=== PATIENT | male | born 1965 | race Caucasian/White ===

== ENCOUNTER 2024-06-22 11:30 | Outpatient (RCR) | payer OTHER, SELFPAY ==
[2024-06-03 10:00] VITALS: BP 125/68; PULSE 83; RESP 16; TEMP 36.3; BMI 41.3
--- NOTE | 2024-06-03 12:15 | PCM.WC.HP ---
History of Present Illness Date of Service: 06/03/24 Chief Complaint: Foot ulcer History of Wound: Mr. Carlos is a 59-year-old who was referred to the wound center by his PCP due to foot ulcers. Bilateral foot concerns. Left foot said to have been present for a few months. He states that he has been cleaning it daily but not done much else to it. History of poorly controlled diabetes, does not follow with podiatry. Last A1c in August per patient was over 13. Recently had another visit with his PCP and there have been some changes to his diabetes management. Does not have much feeling in his foot either. He states that he feels well otherwise. No chills, fever or change in bowel habit. [facility] Medical History (Updated 06/03/24 @ 18:[address] Timothy Valenzuela MD) Diabetes mellitus with foot ulcer Atrial fibrillation Type 2 diabetes mellitus Callus of foot Chronic foot ulcer with fat layer exposed Home Medications ?Medication ?Instructions ?Recorded ?Last Taken ?Type acetaminophen 500 mg tablet 1,000 mg PO Q12H PRN PRN fever or 06/03/24 Unknown History (Acetaminophen Extra Strength) pain apixaban 5 mg tablet (Eliquis) 5 mg PO BID 06/03/24 Unknown History atorvastatin 40 mg tablet 40 mg PO DAILY 06/03/24 Unknown History dapagliflozin propanediol 10 mg 10 mg PO DAILY 06/03/24 Unknown History tablet (Farxiga) furosemide 40 mg tablet 40 mg PO DAILY 06/03/24 Unknown History gabapentin 300 mg capsule 300 mg PO TID 06/03/24 Unknown History lisinopril 10 mg tablet 10 mg PO DAILY 06/03/24 Unknown History potassium chloride 10 mEq 10 meq PO DAILY 06/03/24 Unknown History tablet,extended release tirzepatide 2.5 mg/0.5 mL 2.5 mg subcut QWEEK 06/03/24 Unknown History subcutaneous pen injector (Mounjaro) Allergy/AdvReac Type Severity Reaction Status Date / Time No Known Allergies Allergy Verified 06/03/24 10:28 Social History Smoking Status: Former smoker ROS Constitutional Constitutional: Denies change in weight, fatigue, fever(s), headache(s), increased appetite, lethargy or poor appetite Eyes Eyes: Denies blindness, blurry vision, change in eye color, change in vision, discharge from eye(s), discongugate gaze, erythema or excessive blinking ENT HEENT: Denies dysphagia, epistaxis, facial pain, foreign body in nose, halitosis, headache(s), hearing loss or hoarseness Cardiovascular Cardiovascular: Reports irregular heart rhythm; Denies bluish discoloration of hand/feet, cold extremities, cyanosis, diaphoresis, dizziness or orthostatic symptoms Respiratory/Chest Respiratory/Chest: Denies excessive phlegm production, hemoptysis, hoarseness, inability to speak, mouth breathing or nail bed cyanosis Gastrointestinal Gastrointestinal: Denies belching, bloating, chewing difficulty, cramping, dry heaves or excessive flatus Genitourinary Genitourinary: Denies abdominal discomfort, difficulty urinating, flank pain, hematuria or itching Musculoskeletal Musculoskeletal: Denies atrophy, muscle cramps, muscle weakness, numbness, tingling or tremors Integumentary Integumentary: Denies bleeding lesions, changing lesions, furuncle, jaundice or pruritus Neurologic Neurologic: Denies behavior changes, confusion, convulsions, frequent falls, lack of coordination or memory loss Psychiatric Psychiatric: Denies auditory hallucinations, cognitive impairment, difficulty concentrating, hallucinations, hopelessness or memory loss Endocrine Endocrinology: Denies change in body appearance, cold intolerance, deepening of the voice, excessive sweating, heat intolerance or increase in ring/shoe/hat size Hematologic/Lymphatic Hematologic/Lymphatic: Denies easy bruising Allergic/Immunologic Allergic/Immunologic: Denies itchy eyes, lip swelling, throat swelling, tongue swelling, hives or wheezing Vital Signs Vital Signs Vital Signs: 06/03/24 10:00 Temperature 97.4 F L Temperature Source Temporal Pulse Rate 83 Respiratory Rate 16 Blood Pressure 125/68 H Blood Pressure Mean 87 Blood Pressure Source Monitor Blood Pressure Position Sitting Blood Pressure Location Left Arm Oxygen Delivery Method Room Air Weight Weight: 305 lb Body Mass Index (BMI) 41.3 Physical Exam Const alert, oriented x3 and no apparent distress HEENT normocephalic and head/scalp atraumatic Eyes EOMs intact bilaterally Neck full ROM and supple General: normal visual inspection Resp normal respiratory effort and normal air movement Effort and Inspection: able to speak in complete sentences Cardio regular rate, S1 normal heart sound and S2 normal heart sound Rhythm: abnormal rhythm GI soft to palpation and non-tender Extremity General Extremity: edema Skin Wounds: wounds noted size Size: See clinical note., bed with slough and crusted, margins indurated and no odor Neuro oriented x3, CN's II-XII intact bilaterally and moves all extremities Psych mental status grossly normal, thought process normal, cooperative and affect normal Debridement Note Debridement Note Wound debrided: Left lateral hallux Type of Debridement: Excisional debridement Anesthesia Used: 5% Lidocaine Gel Depth: Down to and including healthy tissue and in the subcutaneous layer Percentage of wound debrided: 100 Instrument Used: 5mm curette, #15 blade and Forceps Tissue Removed: Callus, slough and devitalized tissue Severity: Fat Layer Exposed Amount of bleeding with debridement: Mild Bleeding Controlled with: Pressure Patient tolerated procedure: Patient tolerated procedure well Post-Debridement Measurements and Additional Note: Post-Debridement Measurements/Treatment - Nurse 1 - General Ulcer Assessment Start: 06/03/24 10:00 Freq: Status: Active Protocol: CAM.LOWEXT Activity Type Activity Date Activity User E-sign Co-sign Detail Recorded Client Recorded Date Recorded By Document 06/03/24 10:00 [facility] [id number] 06/03/24 10:25 [facility] 06/03/24 10:00 - Today's Visit Information Type of service Initial Visit Arrival Mode Ambulatory Transfer Assistance None Accompanied by friend Patient Identification Verified (Name & Yes ) Patient Requires Transmission-Based No Precautions Height and Weight Height 6 ft Weight 305 lb Weight in Pounds 305.0 lbs Weight Measurement Method Stated by Patient Body Mass Index (BMI) 41.3 BMI Classification Obese BSA - Ting 2.55 Vital Signs Temperature (97.8 F-99.1 F) 97.4 F L Temperature Source Temporal Pulse Rate (60-100) 83 Pulse Location Monitor Respiratory Rate (12-18) 16 Respiratory rate source Observation Oxygen Delivery Method Room Air Blood Pressure (90/60-120/80) 125/68 H Blood Pressure Mean 87 Source Monitor Position Sitting Blood Pressure Location Left Arm History Since Last Visit- (Skip if this is Patient's initial visit) Left Footwear Regular Shoe Right Footwear Regular Shoe Pain Scale: 0-10 Numeric Is Patient Pain Free? Yes Lower Extremity Assessment/ Foot Assessment/ Toe Nail Assessment Right -Posterior Tibial Doppler Multiphasic -Dorsalis Pedis Doppler Multiphasic -Hair Growth on Legs No -Temperature of Extremity Warm -Thick Yes -Discolored Yes -Deformed No -Improper Length & Hygeine Yes Left -Posterior Tibial Doppler Monophasic -Dorsalis Pedis Doppler Monophasic -Extremity Color Hyperpigmented -Hair Growth on Legs No -Hair Growth on Toes No -Temperature of Extremity Warm -Other Deformity No -Prior Foot Ulcer No -Charcot Joint No -Prior Amputation No -Thick Yes -Discolored Yes -Improper Length & Hygeine Yes Neuropathy Assessment Feet - Top Side and Bottom <Entered> (a) Communication Assessment Preferred language [place] Nurse Practitioner Hospitalist Required No Able to Read Yes Able to Write Yes Communication Tools None Right Hearing Abillity Normal Left Hearing Abillity Normal Visual Assistive Devices None Teaching Assessment Preferences Verbal,Written, Audio/Visual, Demonstration Barriers to Learning None Readiness To Learn Excellent Willingness to Engage in Self Management High Activies Readiness to Engage in Self Management High Activities Anxiety Level Calm Cooperation Cooperative Perception Coherent Interest in Health Problem Asks Questions Education Importance Acknowledges Need Does Patient Smoke tobacco or other No substances Smoking Status Former smoker Is Patient Diabetic Yes Functional Assessment Recent Decline in Ability to Perform Denies Any Declines Culture/Tenriism/Movement Therapist Cultural/Tenriism Needs that may affect No Treatment Plan Teaching: Wound Center *Welcome to the Wound Center -Person Taught Patient -Teaching Method Discussion -Response to teaching Verbalize Understanding (a) 1 - - 2 - - 3 - + 4 - + 5 - - 6 - + 7 - + 8 - + 9 - + 10 - + WC - Nurse 1 - General Ulcer Measurement Start: 06/03/24 10:00 Freq: Status: Active Protocol: Activity Type Activity Date Activity User E-sign Co-sign Detail Recorded Client Recorded Date Recorded By Document 06/03/24 10:00 [facility] [id number] 06/03/24 10:25 [facility] 06/03/24 10:00 Wound Center Nurse 1 #3- R HEEL FISSURE -Combined with other wound No -Current Size (cm) - Length 0.1 -Current Size (cm) - Width 0.1 -Current Size (cm) - Depth 0.1 -Total Square Cm 0.01 -Date of Last Picture (Recall this 06/03/24 field) -Photo Taken Yes -Tunneling No -Undermining/Tunneling No -Circular Undermining No -Exudate Amt Medium -Exudate Type Serosanguineous -Wound Margin Distinct, Outline Attached -Texture (Marlin-wound Skin Appearance) Assessed,Callus ,Scarring -Moisture (Marlin-wound Skin Appearance) Assessed,Dry/ Scaly -Color (Marlin-wound Skin Appearance) Assessed -Temperature (Marlin-wound Skin No Abnormality Appearance) (Pt Warm) -Tenderness on Palpation (Marlin-wound No Skin Appearance) -Ulcer Cleansing Soap and Water -Foul Odor after Cleansing No -Anesthetic Used 5% Lidocaine Gel #2- FISSURE @ PLANTAR BASE OF R GR TOE -Combined with other wound No -Current Size (cm) - Length 0.1 -Current Size (cm) - Width 0.1 -Current Size (cm) - Depth 0.1 -Total Square Cm 0.01 -Date of Last Picture (Recall this 06/03/24 field) -Photo Taken Yes -Tunneling No -Undermining/Tunneling No -Circular Undermining No -Exudate Amt Medium -Exudate Type Serosanguineous -Wound Margin Distinct, Outline Attached -Granulation Amt Medium (34-66%) -Granulation Quality Red -Slough/Fibrin Yes -Necrosis Amt Small (1-33%) -Necrotic Tissue Type Adherent Slough -Texture (Marlin-wound Skin Appearance) Assessed,Callus ,Scarring -Moisture (Marlin-wound Skin Appearance) Assessed,Dry/ Scaly -Color (Marlin-wound Skin Appearance) Assessed -Temperature (Marlin-wound Skin No Abnormality Appearance) (Pt Warm) -Tenderness on Palpation (Marlin-wound No Skin Appearance) -Ulcer Cleansing Soap and Water -Foul Odor after Cleansing No -Anesthetic Used 5% Lidocaine Gel #1- L BUNION CALLUS -Combined with other wound No -Current Size (cm) - Length 0.1 -Current Size (cm) - Width 0.1 -Current Size (cm) - Depth 0.1 -Total Square Cm 0.01 -Date of Last Picture (Recall this 06/03/24 field) -Photo Taken Yes -Tunneling No -Undermining/Tunneling No -Circular Undermining No -Exudate Amt Medium -Exudate Type Serosanguineous -Texture (Marlin-wound Skin Appearance) Assessed,Callus -Moisture (Marlin-wound Skin Appearance) Assessed,Dry/ Scaly -Color (Marlin-wound Skin Appearance) Assessed -Temperature (Marlin-wound Skin No Abnormality Appearance) (Pt Warm) -Tenderness on Palpation (Marlin-wound No Skin Appearance) -Ulcer Cleansing Soap and Water -Foul Odor after Cleansing No -Anesthetic Used 5% Lidocaine Gel Right Calf (cm) 42.3 Right Ankle (cm) 25.6 Left Calf (cm) 39.8 Left Ankle (cm) 24 WC - Nurse 2 - General Ulcer CM Notes Start: 06/03/24 10:00 Freq: Status: Active Protocol: Activity Type Activity Date Activity User E-sign Co-sign Detail Recorded Client Recorded Date Recorded By Document 06/03/24 10:47 [id number] 06/03/24 11:07 [facility] 06/03/24 10:47 Wound Center Nurse 2 #2- FISSURE @ PLANTAR BASE OF R GR TOE -Time 10:50 -Correct Patient Yes -Correct Side, Site, Position Yes -Correct Procedure Yes -Procedure Performed Yes -Type of Procedure Debridement -Clinical Debridement Subcutaneous -Tissue Removed Subcutaneous -Tunneling No -Undermining/Tunneling No -Circular Undermining No -Wound/Ulcer Outcome Not Healed -Ulcer Cleansing Rinsed/ Irrigated with Saline -Foul Odor after Cleansing No -Bioengineered Tissue No -Bleeding Controlled with Pressure -Treatment Response Procedure Tolerated Well -Debridement - Subq, 1st 20sq cm No #1- L BUNION CALLUS -Time 10:51 -Correct Patient Yes -Correct Side, Site, Position Yes -Correct Procedure Yes -Procedure Performed Yes -Type of Procedure Debridement -Clinical Debridement Subcutaneous -Tissue Removed Subcutaneous -Post Debridement (cm) - Length 0.6 -Post Debridement (cm) - Width 2.5 -Post Debridement (cm) - Depth 0.1 -Total Square (Post) (cm) 1.50 -Area of Debridement (cm) - Length 0.6 -Area of Debridement (cm) - Width 2.5 -Total Square (Area) (cm) 1.50 -Tunneling No -Undermining/Tunneling No -Circular Undermining No -Wound/Ulcer Outcome Not Healed -Ulcer Cleansing Rinsed/ Irrigated with Saline -Foul Odor after Cleansing No -Bioengineered Tissue No -Bleeding Controlled with Pressure -Treatment Response Procedure Tolerated Well -Debridement - Subq, 1st 20sq cm Yes Pain Scale: 0-10 Numeric Is Patient Pain Free? Yes CAM - Nurse 3 - General Ulcer D/C NN Start: 06/03/24 10:00 Freq: Status: Active Protocol: Activity Type Activity Date Activity User E-sign Co-sign Detail Recorded Client Recorded Date Recorded By Document 10/10/24 11:18 [facility] [id number] 06/03/24 11:20 [facility] 06/03/24 11:18 Wound Care Center Nurse 3 #3- R HEEL FISSURE -Ulcer Cleansing Rinsed/ Irrigated with Saline -Foul Odor after Cleansing No -Primary Dressing Applied NonAdherent Contact Layer -Other Dressing drsg per kw lab support tech -Primary Dressing Covered/Secured with Dry Gauze & Roll Gauze, Secured with Tape #2- FISSURE @ PLANTAR BASE OF R GR TOE -Ulcer Cleansing Rinsed/ Irrigated with Saline -Foul Odor after Cleansing No -Primary Dressing Applied NonAdherent Contact Layer -Other Dressing per kw lab support tech -Primary Dressing Covered/Secured with Dry Gauze & Roll Gauze, Secured with Tape #1- L BUNION CALLUS -Ulcer Cleansing Rinsed/ Irrigated with Saline -Foul Odor after Cleansing No -Primary Dressing Applied C Hydrogel ($), NonAdherent Contact Layer -Other Dressing per kw lab support tech -Primary Dressing Covered/Secured with Dry Gauze & Roll Gauze, Secured with Tape Treatment Response Procedure Tolerated Well Pain Scale: 0-10 Numeric Is Patient Pain Free? Yes WC - Visit Discharge Discharge Condition Stable Ambulatory Status Ambulatory Transportation Private Auto Charges/Coding Visit Charges Office Visits / Consults: [id number] OV L4 New 45min Procedures Integumentary [id number]: [id number] Vanessa subq tissue 20 sq cm/< Assessment/Plan Assessment/Plan (1) Chronic foot ulcer with fat layer exposed: CODE(S): L97.502 - Non-pressure chronic ulcer of other part of unspecified foot with fat layer exposed (2) Callus of foot: CODE(S): L84 - Corns and callosities (3) Type 2 diabetes mellitus: CODE(S): E11.9 - Type 2 diabetes mellitus without complications (4) Diabetes mellitus with foot ulcer: CODE(S): E11.621 - Type 2 diabetes mellitus with foot ulcer; L97.509 - Non-pressure chronic ulcer of other part of unspecified foot with unspecified severity (5) Atrial fibrillation: CODE(S): I48.91 - Unspecified atrial fibrillation PLAN: Plan Debridement done as documented above, procedure was well-tolerated. Significant callus and fissuring of his feet. Left foot greater than right. I do not believe that his ulcer are primarily due to diabetes however, presence of diabetes definitely complicates care. Ulcers primarily around areas of significant callus. As above, his last A1c was 13. Recently started working with his primary care physician to manage this. Very lengthy discussion had with patient about ongoing foot care especially in light of his poorly controlled diabetes, he voiced understanding. Also concern for foot abnormalities and I believe he would be better suited by a records management engineer. Will arrange to transfer care to podiatry next week. For now, hydrogel to left hallux area. Cover with Adaptic and foam dressing. Offloading very strongly recommended. Vaseline, Adaptic and foam dressing to right areas of fissure/callus. Optimal diabetes control strongly recommended. Adequate protein intake. His questions were answered and he was advised to let us know if he has any further questions or concerns. Transfer care to podiatry. This note was generated with [employer] dictation software. It may contain incorrect words, spelling, and punctuation that were not noted in checking the note before signing.
--- NOTE | 2024-06-04 12:01 | WC ---
PHOTO 06/03/24 LEFT RANDEE
--- NOTE | 2024-06-04 12:03 | WC ---
PHOTO FISSURE BASE OF RIGHT GREAT TOE 06/03/24
--- NOTE | 2024-06-04 12:04 | WC ---
PHOTO 06/03/24 RIGHT HEEL FISSURE
[2024-06-08 10:37] VITALS: BP 149/83; PULSE 89; RESP 18; TEMP 35.8; BMI 41.3
--- NOTE | 2024-06-08 11:20 | PCM.WC.HP ---
History of Present Illness Date of Service: 06/08/24 Chief Complaint: Foot ulcer History of Wound: Mr. Carlos is a 59-year-old who was referred to the wound center by his PCP due to foot ulcers. Bilateral foot concerns. Left foot said to have been present for a few months. He states that he has been cleaning it daily but not done much else to it. History of poorly controlled diabetes, does not follow with podiatry. Last A1c in August per patient was over 13. Recently had another visit with his PCP and there have been some changes to his diabetes management. Does not have much feeling in his foot either. He states that he feels well otherwise. No chills, fever or change in bowel habit. Progress of Wound: Patient is a type II diabetic with a recent hemoglobin A1c of 13. Patient does not check his blood sugar daily. Patient has no feeling in his feet. Patient has had a wound to left foot for approximately 1 month. Denies any constitutional symptoms. Denies any other treatments. [facility] Medical History Diabetes mellitus with foot ulcer Atrial fibrillation Type 2 diabetes mellitus Callus of foot Chronic foot ulcer with fat layer exposed Home Medications ?Medication ?Instructions ?Recorded ?Last Taken ?Type acetaminophen 500 mg tablet 1,000 mg PO Q12H PRN PRN fever or 06/03/24 Unknown History (Acetaminophen Extra Strength) pain apixaban 5 mg tablet (Eliquis) 5 mg PO BID 06/03/24 Unknown History atorvastatin 40 mg tablet 40 mg PO DAILY 06/03/24 Unknown History dapagliflozin propanediol 10 mg 10 mg PO DAILY 06/03/24 Unknown History tablet (Farxiga) furosemide 40 mg tablet 40 mg PO DAILY 06/03/24 Unknown History gabapentin 300 mg capsule 300 mg PO TID 06/03/24 Unknown History lisinopril 10 mg tablet 10 mg PO DAILY 06/03/24 Unknown History potassium chloride 10 mEq 10 meq PO DAILY 06/03/24 Unknown History tablet,extended release tirzepatide 2.5 mg/0.5 mL 2.5 mg subcut QWEEK 06/03/24 Unknown History subcutaneous pen injector (Mounjaro) Allergy/AdvReac Type Severity Reaction Status Date / Time No Known Allergies Allergy Verified 06/03/24 10:28 Social History Smoking Status: Former smoker ROS Constitutional Constitutional: Denies fever(s), frequent falls or headache(s) Eyes Eyes: Denies change in eye color, change in vision or foreign body ENT HEENT: Denies dysphagia, ear discharge or mouth pain Cardiovascular Cardiovascular: Denies bluish discoloration of hand/feet, chest pain or dyspnea on exertion Respiratory/Chest Respiratory/Chest: Denies difficulty clearing secretions, dry cough or nail bed cyanosis Gastrointestinal Gastrointestinal: Denies chewing difficulty, coffee ground emesis or hematemesis Vital Signs Vital Signs Vital Signs: 06/08/24 10:37 Temperature 96.4 F L Temperature Source Temporal Pulse Rate 89 Respiratory Rate 18 Blood Pressure 149/83 H Blood Pressure Mean 105 Blood Pressure Source Monitor Blood Pressure Position Semi-Fowlers Blood Pressure Location Left Arm Oxygen Delivery Method Room Air Weight Weight: 138.346 kg Body Mass Index (BMI) 41.3 Physical Exam Narrative Vascular: Dorsalis pedis posterior tibial pulses palpable 2 out of 4 to bilateral lower extremity. Atrophic skin changes noted bilaterally. Neurologic: Light touch protective sensation absent to bilateral feet. Dermatologic: Diffuse callusing to plantar first MPJ left foot with fissuring. Pre and postdebridement measurements documented nursing notes. Postdebridement wound was noticed to be full-thickness down to level of subcutaneous tissue. No deep probing undermining or signs of infection note beckman noted. Musculoskeletal: No gross deformity contributing to wound formation. Muscular strength full. Debridement Note Debridement Note Post-Debridement Measurements and Additional Note: Post-Debridement Measurements/Treatment - Nurse 1 - General Ulcer Assessment Start: 06/03/24 10:00 Freq: Status: Active Protocol: CAM.RENAN Activity Type Activity Date Activity User E-sign Co-sign Detail Recorded Client Recorded Date Recorded By Document 06/03/24 10:00 BM [id number] 06/03/24 10:25 BMF Document 06/08/24 10:37 KW [id number] 06/08/24 10:43 KW 06/03/24 06/08/24 10:00 10:37 - Today's Visit Information Type of service Initial Visit Follow-up Visit (Physician/[employer]IST ) Arrival Mode Ambulatory Ambulatory Transfer Assistance None Accompanied by friend Patient Identification Verified (Name & Yes Yes ) Patient Requires Transmission-Based No Precautions Height and Weight Height 6 ft Weight 138.346 kg Weight in Pounds 305.0 lbs Weight Measurement Method Stated by Patient Body Mass Index (BMI) 41.3 41.3 BMI Classification Obese Obese BSA - Ting 2.55 Vital Signs Temperature (97.8 F-99.1 F) 97.4 F L 96.4 F L Temperature Source Temporal Temporal Pulse Rate (60-100) 83 89 Pulse Location Monitor Monitor Respiratory Rate (12-18) 16 18 Respiratory rate source Observation Observation Oxygen Delivery Method Room Air Room Air Blood Pressure (90/60-120/80) 125/68 H 149/83 H Blood Pressure Mean 87 105 Source Monitor Monitor Position Sitting Semi-Fowlers Blood Pressure Location Left Arm Left Arm History Since Last Visit- (Skip if this is Patient's initial visit) Have you changed medications since your No last visit? Any new allergies or adverse reactions No Had a fall/change in ADL's that may No increase risk of falls Signs or symptoms of abuse and/or No neglect since last visit Have you been in the hospital since your No last visit? Has dressing in place as prescribed Yes Has compression in place as prescribed N/A Has offloadiing in place as prescribed N/A Experienced any changes in pain level or No management Left Footwear Regular Shoe Regular Shoe Right Footwear Regular Shoe Regular Shoe Pain Scale: 0-10 Numeric Is Patient Pain Free? Yes Yes Lower Extremity Assessment/ Foot Assessment/ Toe Nail Assessment Right -Posterior Tibial Doppler Multiphasic -Dorsalis Pedis Doppler Multiphasic -Hair Growth on Legs No -Temperature of Extremity Warm -Thick Yes -Discolored Yes -Deformed No -Improper Length & Hygeine Yes Left -Posterior Tibial Doppler Monophasic -Dorsalis Pedis Doppler Monophasic -Extremity Color Hyperpigmented -Hair Growth on Legs No -Hair Growth on Toes No -Temperature of Extremity Warm -Other Deformity No -Prior Foot Ulcer No -Charcot Joint No -Prior Amputation No -Thick Yes -Discolored Yes -Improper Length & Hygeine Yes Neuropathy Assessment Feet - Top Side and Bottom <Entered> (a) Communication Assessment Preferred language Kosovan Assembly Adjuster Required No Able to Read Yes Able to Write Yes Communication Tools None Right Hearing Abillity Normal Left Hearing Abillity Normal Visual Assistive Devices None Teaching Assessment Preferences Verbal,Written, Audio/Visual, Demonstration Barriers to Learning None Readiness To Learn Excellent Willingness to Engage in Self Management High Activies Readiness to Engage in Self Management High Activities Anxiety Level Calm Cooperation Cooperative Perception Coherent Interest in Health Problem Asks Questions Education Importance Acknowledges Need Does Patient Smoke tobacco or other No substances Smoking Status Former smoker Is Patient Diabetic Yes Functional Assessment Recent Decline in Ability to Perform Denies Any Declines Culture/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 Cultural/Voodoo Needs that may affect No Treatment Plan Teaching: Wound Center *Welcome to the Wound Center -Person Taught Patient -Teaching Method Discussion -Response to teaching Verbalize Understanding (a) 1 - - 2 - - 3 - + 4 - + 5 - - 6 - + 7 - + 8 - + 9 - + 10 - + WC - Nurse 1 - General Ulcer Measurement Start: 06/03/24 10:00 Freq: Status: Active Protocol: Activity Type Activity Date Activity User E-sign Co-sign Detail Recorded Client Recorded Date Recorded By Document 06/03/24 10:00 [facility] [id number] 06/03/24 10:25 BM Document 06/08/24 10:37 KW [id number] 06/08/24 10:43 KW 06/03/24 06/08/24 10:00 10:37 Wound Center Nurse 1 #3- R HEEL FISSURE -Combined with other wound No -Current Size (cm) - Length 0.1 0.1 -Current Size (cm) - Width 0.1 0.1 -Current Size (cm) - Depth 0.1 0.1 -Total Square Cm 0.01 0.01 -Date of Last Picture (Recall this 06/03/24 field) -Photo Taken Yes -Tunneling No -Undermining/Tunneling No -Circular Undermining No -Exudate Amt Medium None Present -Exudate Type Serosanguineous -Wound Margin Distinct, Outline Attached -Texture (Mralin-wound Skin Appearance) Assessed,Callus Assessed,Callus ,Scarring -Moisture (Marlin-wound Skin Appearance) Assessed,Dry/ Assessed Scaly -Color (Marlin-wound Skin Appearance) Assessed Assessed -Temperature (Marlin-wound Skin No Abnormality No Abnormality Appearance) (Pt Warm) (Pt Warm) -Tenderness on Palpation (Marlin-wound No No Skin Appearance) -Ulcer Cleansing Soap and Water -Foul Odor after Cleansing No -Anesthetic Used 5% Lidocaine Gel #2- FISSURE @ PLANTAR BASE OF R GR TOE -Combined with other wound No -Current Size (cm) - Length 0.1 0.1 -Current Size (cm) - Width 0.1 0.1 -Current Size (cm) - Depth 0.1 0.1 -Total Square Cm 0.01 0.01 -Date of Last Picture (Recall this 06/03/24 field) -Photo Taken Yes -Tunneling No -Undermining/Tunneling No -Circular Undermining No -Exudate Amt Medium -Exudate Type Serosanguineous -Wound Margin Distinct, Outline Attached -Granulation Amt Medium (34-66%) -Granulation Quality Red -Slough/Fibrin Yes -Necrosis Amt Small (1-33%) -Necrotic Tissue Type Adherent Slough -Texture (Marlin-wound Skin Appearance) Assessed,Callus Assessed,Callus ,Scarring -Moisture (Marlin-wound Skin Appearance) Assessed,Dry/ Assessed Scaly -Color (Marlin-wound Skin Appearance) Assessed Assessed -Temperature (Marlin-wound Skin No Abnormality No Abnormality Appearance) (Pt Warm) (Pt Warm) -Tenderness on Palpation (Marlin-wound No No Skin Appearance) -Ulcer Cleansing Soap and Water -Foul Odor after Cleansing No -Anesthetic Used 5% Lidocaine Gel #1- L BUNION CALLUS -Combined with other wound No -Current Size (cm) - Length 0.1 3 -Current Size (cm) - Width 0.1 2.5 -Current Size (cm) - Depth 0.1 0 -Total Square Cm 0.01 7.5 -Date of Last Picture (Recall this 06/03/24 field) -Photo Taken Yes -Tunneling No -Undermining/Tunneling No -Circular Undermining No -Exudate Amt Medium None Present -Exudate Type Serosanguineous -Texture (Marlin-wound Skin Appearance) Assessed,Callus Assessed,Callus -Moisture (Marlin-wound Skin Appearance) Assessed,Dry/ Assessed Scaly -Color (Marlin-wound Skin Appearance) Assessed Assessed -Temperature (Marlin-wound Skin No Abnormality No Abnormality Appearance) (Pt Warm) (Pt Warm) -Tenderness on Palpation (Marlin-wound No Skin Appearance) -Ulcer Cleansing Soap and Water -Foul Odor after Cleansing No No -Anesthetic Used 5% Lidocaine 5% Lidocaine Gel Gel Right Calf (cm) 42.3 Right Ankle (cm) 25.6 Left Calf (cm) 39.8 Left Ankle (cm) 24 WC - Nurse 2 - General Ulcer CM Notes Start: 06/03/24 10:00 Freq: Status: Active Protocol: Activity Type Activity Date Activity User E-sign Co-sign Detail Recorded Client Recorded Date Recorded By Document 06/03/24 10:47 [id number] 06/03/24 11:07 Document 06/08/24 10:57 JF [id number] 06/08/24 11:01 06/03/24 06/08/24 10:47 10:57 Wound Center Nurse 2 #3- R HEEL FISSURE -Correct Patient No -Correct Side, Site, Position No -Correct Procedure No -Procedure Performed No -Wound/Ulcer Outcome Not Healed #2- FISSURE @ PLANTAR BASE OF R GR TOE -Time 10:50 -Correct Patient Yes No -Correct Side, Site, Position Yes No -Correct Procedure Yes No -Procedure Performed Yes No -Type of Procedure Debridement -Clinical Debridement Subcutaneous -Tissue Removed Subcutaneous -Tunneling No -Undermining/Tunneling No -Circular Undermining No -Wound/Ulcer Outcome Not Healed Not Healed -Ulcer Cleansing Rinsed/ Irrigated with Saline -Foul Odor after Cleansing No -Bioengineered Tissue No -Bleeding Controlled with Pressure -Treatment Response Procedure Tolerated Well -Debridement - Subq, 1st 20sq cm No #1- L BUNION CALLUS -Time 10:51 11:00 -Correct Patient Yes Yes -Correct Side, Site, Position Yes Yes -Correct Procedure Yes Yes -Procedure Performed Yes Yes -Type of Procedure Debridement Debridement -Clinical Debridement Subcutaneous Subcutaneous -Tissue Removed Subcutaneous Subcutaneous -Post Debridement (cm) - Length 0.6 2.3 -Post Debridement (cm) - Width 2.5 0.3 -Post Debridement (cm) - Depth 0.1 0.3 -Total Square (Post) (cm) 1.50 0.69 -Area of Debridement (cm) - Length 0.6 2.3 -Area of Debridement (cm) - Width 2.5 0.3 -Total Square (Area) (cm) 1.50 0.69 -Tunneling No No -Undermining/Tunneling No No -Circular Undermining No No -Wound/Ulcer Outcome Not Healed Not Healed -Ulcer Cleansing Rinsed/ Rinsed/ Irrigated with Irrigated with Saline Saline -Foul Odor after Cleansing No No -Bioengineered Tissue No No -Bleeding Controlled with Pressure Pressure -Treatment Response Procedure Procedure Tolerated Well Tolerated Well -Offloading Yes -Type of Offloading Total Contact Cast (TCC) - Left ($) -Debridement - Subq, 1st 20sq cm Yes Yes Pain Scale: 0-10 Numeric Is Patient Pain Free? Yes Yes - Nurse 3 - General Ulcer D/C NN Start: 06/03/24 10:00 Freq: Status: Active Protocol: Activity Type Activity Date Activity User E-sign Co-sign Detail Recorded Client Recorded Date Recorded By Document 06/03/24 11:18 [facility] [id number] 06/03/24 11:20 [facility] 06/03/24 11:18 Wound Care Center Nurse 3 #3- R HEEL FISSURE -Ulcer Cleansing Rinsed/ Irrigated with Saline -Foul Odor after Cleansing No -Primary Dressing Applied NonAdherent Contact Layer -Other Dressing drsg per kw furniture shampooer -Primary Dressing Covered/Secured with Dry Gauze & Roll Gauze, Secured with Tape #2- FISSURE @ PLANTAR BASE OF R GR TOE -Ulcer Cleansing Rinsed/ Irrigated with Saline -Foul Odor after Cleansing No -Primary Dressing Applied NonAdherent Contact Layer -Other Dressing per kw furniture shampooer -Primary Dressing Covered/Secured with Dry Gauze & Roll Gauze, Secured with Tape #1- L BUNION CALLUS -Ulcer Cleansing Rinsed/ Irrigated with Saline -Foul Odor after Cleansing No -Primary Dressing Applied C Hydrogel ($), NonAdherent Contact Layer -Other Dressing per kw furniture shampooer -Primary Dressing Covered/Secured with Dry Gauze & Roll Gauze, Secured with Tape Treatment Response Procedure Tolerated Well Pain Scale: 0-10 Numeric Is Patient Pain Free? Yes - Visit Discharge Discharge Condition Stable Ambulatory Status Ambulatory Transportation Private Auto Assessment/Plan Assessment/Plan (1) Type 2 diabetes mellitus with diabetic polyneuropathy: CODE(S): E11.42 - Type 2 diabetes mellitus with diabetic polyneuropathy QUALIFIERS: Diabetes mellitus shelter insulin use: with oil heaterman use Qualified Code(s): E11.42 - Type 2 diabetes mellitus with diabetic polyneuropathy; Z79.4 - detention (current) use of insulin PLAN: Exam performed. Arterial, venous studies ordered. Patient has diabetic foot ulceration secondary to pressure. Left foot ulceration was excisionally debrided down to including level of subcutaneous tissue of all nonviable tissue using a combination of tissue nippers and a #15 blade. Patient tolerated procedure well. No anesthesia due to neuropathy. Hemostasis obtained with light compression. Pre and postdebridement measurements documented nursing notes. Plan for daily hydrogel DSD dressings. Offload with surgical shoe, will plan for total contact casting upon obtaining arterial and venous studies Discussed tighter blood glucose regulation we will plan for diabetes education consult Ordered baseline lab work Educated patient on signs symptoms of infection. Patient will contact our office or present to ER if they were to develop. Follow-up in 1 week. 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
[2024-06-15 11:21] VITALS: BP 133/76; PULSE 87; RESP 18; TEMP 36; BMI 41.3
--- NOTE | 2024-06-15 12:11 | PCM.WC.PN ---
History of Present Illness Date of Service: 06/15/24 Chief Complaint: Foot ulcer History of Wound: Mr. Carlos is a 59-year-old who was referred to the wound center by his PCP due to foot ulcers. Bilateral foot concerns. Left foot said to have been present for a few months. He states that he has been cleaning it daily but not done much else to it. History of poorly controlled diabetes, does not follow with podiatry. Last A1c in August per patient was over 13. Recently had another visit with his PCP and there have been some changes to his diabetes management. Does not have much feeling in his foot either. He states that he feels well otherwise. No chills, fever or change in bowel habit. Progress of Wound: Patient is a type II diabetic with a recent hemoglobin A1c of 13. Patient does not check his blood sugar daily. Patient has no feeling in his feet. Patient has had a wound to left foot for approximately 1 month. Denies any constitutional symptoms. Denies any other treatments. Objective Data Objective Data Vital Signs: Vital Signs Temp Pulse Resp BP O2 Del Method 96.8 F L 87 18 133/76 H Room Air 06/15/24 11:21 06/15/24 11:21 06/15/24 11:21 06/15/24 11:21 06/15/24 11:21 Oxygen Delivery Method Room Air Weight: 138.346 kg Body Mass Index (BMI) 41.3 Physical Exam Narrative Vascular: Dorsalis pedis posterior tibial pulses palpable 2 out of 4 to bilateral lower extremity. Atrophic skin changes noted bilaterally. Neurologic: Light touch protective sensation absent to bilateral feet. Dermatologic: Diffuse callusing to plantar first MPJ left foot with fissuring. Pre and postdebridement measurements documented nursing notes. Postdebridement wound was noticed to be full-thickness down to level of subcutaneous tissue. No deep probing undermining or signs of infection note beckman noted. Musculoskeletal: No gross deformity contributing to wound formation. Muscular strength full. Debridement Note Debridement Note Post-Debridement Measurements and Additional Note: Post-Debridement Measurements/Treatment WC - Nurse 1 - General Ulcer Assessment Start: 06/03/24 10:00 Freq: Status: Active Protocol: CAM.LOWEXT Activity Type Activity Date Activity User E-sign Co-sign Detail Recorded Client Recorded Date Recorded By Document 06/03/24 10:00 [facility] [id number] 06/03/24 10:25 BMF Document 06/08/24 10:37 KW [id number] 06/08/24 10:43 KW Document 06/15/24 11:21 DS [id number] 06/15/24 11:23 DS 06/03/24 06/08/24 06/15/24 10:00 10:37 11:21 WC - Today's Visit Information Type of service Initial Visit Follow-up Visit Follow-up Visit (Physician/PST SUPERVISOR (Physician/PST SUPERVISOR ) ) Arrival Mode Ambulatory Ambulatory Ambulatory Transfer Assistance None Accompanied by friend Patient Identification Verified (Name & Yes Yes Yes ) Patient Requires Transmission-Based No No Precautions Safety Precautions Fall Prevention Height and Weight Height 6 ft Weight 138.346 kg Weight in Pounds 305.0 lbs Weight Measurement Method Stated by Patient Body Mass Index (BMI) 41.3 41.3 41.3 BMI Classification Obese Obese Obese BSA - Ting 2.55 Vital Signs Temperature (97.8 F-99.1 F) 97.4 F L 96.4 F L 96.8 F L Temperature Source Temporal Temporal Temporal Pulse Rate (60-100) 83 89 87 Pulse Location Monitor Monitor Monitor Respiratory Rate (12-18) 16 18 18 Respiratory rate source Observation Observation Observation Oxygen Delivery Method Room Air Room Air Room Air Blood Pressure (90/60-120/80) 125/68 H 149/83 H 133/76 H Blood Pressure Mean (mm Hg) 87 105 95 Source Monitor Monitor Monitor Position Sitting Semi-Fowlers Sitting Blood Pressure Location Left Arm Left Arm Right Arm History Since Last Visit- (Skip if this is Patient's initial visit) Have you changed medications since your No No last visit? Any new allergies or adverse reactions No No Had a fall/change in ADL's that may No No increase risk of falls Signs or symptoms of abuse and/or No No neglect since last visit Have you been in the hospital since your No No last visit? Has dressing in place as prescribed Yes Yes Has compression in place as prescribed N/A N/A Has offloadiing in place as prescribed N/A N/A Experienced any changes in pain level or No No management Left Footwear Regular Shoe Regular Shoe Regular Shoe Right Footwear Regular Shoe Regular Shoe Regular Shoe Pain Scale: 0-10 Numeric Is Patient Pain Free? Yes Yes Yes Lower Extremity Assessment/ Foot Assessment/ Toe Nail Assessment Right -Posterior Tibial Doppler Multiphasic -Dorsalis Pedis Doppler Multiphasic -Hair Growth on Legs No -Temperature of Extremity Warm -Thick Yes -Discolored Yes -Deformed No -Improper Length & Hygeine Yes Left -Posterior Tibial Doppler Monophasic -Dorsalis Pedis Doppler Monophasic -Extremity Color Hyperpigmented -Hair Growth on Legs No -Hair Growth on Toes No -Temperature of Extremity Warm -Other Deformity No -Prior Foot Ulcer No -Charcot Joint No -Prior Amputation No -Thick Yes -Discolored Yes -Improper Length & Hygeine Yes Neuropathy Assessment Feet - Top Side and Bottom <Entered> (a) Communication Assessment Preferred language Citizen Of [place] Guide Required No Able to Read Yes Able to Write Yes Communication Tools None Right Hearing Abillity Normal Left Hearing Abillity Normal Visual Assistive Devices None Teaching Assessment Preferences Verbal,Written, Audio/Visual, Demonstration Barriers to Learning None Readiness To Learn Excellent Willingness to Engage in Self Management High Activies Readiness to Engage in Self Management High Activities Anxiety Level Calm Cooperation Cooperative Perception Coherent Interest in Health Problem Asks Questions Education Importance Acknowledges Need Does Patient Smoke tobacco or other No substances Smoking Status Former smoker Is Patient Diabetic Yes Functional Assessment Recent Decline in Ability to Perform Denies Any Declines 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 Cultural/Tenriism Needs that may affect No Treatment Plan Teaching: Wound Center *Welcome to the Wound Center -Person Taught Patient -Teaching Method Discussion -Response to teaching Verbalize Understanding (a) 1 - - 2 - - 3 - + 4 - + 5 - - 6 - + 7 - + 8 - + 9 - + 10 - + WC - Nurse 1 - General Ulcer Measurement Start: 06/03/24 10:00 Freq: Status: Active Protocol: Activity Type Activity Date Activity User E-sign Co-sign Detail Recorded Client Recorded Date Recorded By Document 06/03/24 10:00 BMF [id number] 06/03/24 10:25 BMF Document 06/08/24 10:37 KW [id number] 06/08/24 10:43 KW Document 06/15/24 11:23 DS [id number] 06/15/24 11:33 DS 06/03/24 06/08/24 06/15/24 10:00 10:37 11:23 Wound Center Nurse 1 #3- R HEEL FISSURE -Combined with other wound No -Current Size (cm) - Length 0.1 0.1 0.1 -Current Size (cm) - Width 0.1 0.1 0.1 -Current Size (cm) - Depth 0.1 0.1 0.1 -Total Square Cm 0.01 0.01 0.01 -Date of Last Picture (Recall this 06/03/24 field) -Photo Taken Yes No -Tunneling No No -Undermining/Tunneling No No -Circular Undermining No No -Exudate Amt Medium None Present -Exudate Type Serosanguineous -Wound Margin Distinct, Distinct, Outline Outline Attached Attached -Texture (Marlin-wound Skin Appearance) Assessed,Callus Assessed,Callus Assessed,Callus ,Scarring -Moisture (Marlin-wound Skin Appearance) Assessed,Dry/ Assessed Assessed Scaly -Color (Marlin-wound Skin Appearance) Assessed Assessed Assessed -Temperature (Marlin-wound Skin No Abnormality No Abnormality No Abnormality Appearance) (Pt Warm) (Pt Warm) (Pt Warm) -Tenderness on Palpation (Marlin-wound No No No Skin Appearance) -Ulcer Cleansing Soap and Water Soap and Water -Foul Odor after Cleansing No -Anesthetic Used 5% Lidocaine 5% Lidocaine Gel Gel #2- FISSURE @ PLANTAR BASE OF R GR TOE -Combined with other wound No -Current Size (cm) - Length 0.1 0.1 0.1 -Current Size (cm) - Width 0.1 0.1 0.1 -Current Size (cm) - Depth 0.1 0.1 0.1 -Total Square Cm 0.01 0.01 0.01 -Date of Last Picture (Recall this 06/03/24 field) -Photo Taken Yes No -Tunneling No No -Undermining/Tunneling No No -Circular Undermining No No -Exudate Amt Medium -Exudate Type Serosanguineous -Wound Margin Distinct, Distinct, Outline Outline Attached Attached -Granulation Amt Medium (34-66%) -Granulation Quality Red -Slough/Fibrin Yes -Necrosis Amt Small (1-33%) -Necrotic Tissue Type Adherent Slough -Texture (Marlin-wound Skin Appearance) Assessed,Callus Assessed,Callus Assessed,Callus ,Scarring -Moisture (Marlin-wound Skin Appearance) Assessed,Dry/ Assessed Assessed Scaly -Color (Marlin-wound Skin Appearance) Assessed Assessed Assessed -Temperature (Marlin-wound Skin No Abnormality No Abnormality No Abnormality Appearance) (Pt Warm) (Pt Warm) (Pt Warm) -Tenderness on Palpation (Marlin-wound No No No Skin Appearance) -Ulcer Cleansing Soap and Water Soap and Water -Foul Odor after Cleansing No -Anesthetic Used 5% Lidocaine 5% Lidocaine Gel Gel #1- L BUNION CALLUS -Combined with other wound No -Current Size (cm) - Length 0.1 3 0.1 -Current Size (cm) - Width 0.1 2.5 0.1 -Current Size (cm) - Depth 0.1 0 0.1 -Total Square Cm 0.01 7.5 0.01 -Date of Last Picture (Recall this 06/03/24 field) -Photo Taken Yes No -Tunneling No -Undermining/Tunneling No -Circular Undermining No -Exudate Amt Medium None Present -Exudate Type Serosanguineous -Wound Margin Distinct, Outline Attached -Texture (Marlin-wound Skin Appearance) Assessed,Callus Assessed,Callus Assessed,Callus -Moisture (Marlin-wound Skin Appearance) Assessed,Dry/ Assessed Assessed Scaly -Color (Marlin-wound Skin Appearance) Assessed Assessed Assessed -Temperature (Marlin-wound Skin No Abnormality No Abnormality Appearance) (Pt Warm) (Pt Warm) -Tenderness on Palpation (Marlin-wound No Skin Appearance) -Ulcer Cleansing Soap and Water Soap and Water -Foul Odor after Cleansing No No -Anesthetic Used 5% Lidocaine 5% Lidocaine 5% Lidocaine Gel Gel Gel Right Calf (cm) 42.3 Right Ankle (cm) 25.6 Left Calf (cm) 39.8 Left Ankle (cm) 24 WC - Nurse 2 - General Ulcer CM Notes Start: 06/03/24 10:00 Freq: Status: Active Protocol: Activity Type Activity Date Activity User E-sign Co-sign Detail Recorded Client Recorded Date Recorded By Document 06/03/24 10:47 [id number] 06/03/24 11:07 Document 06/08/24 10:57 JF [id number] 06/08/24 11:01 JF Document 06/15/24 11:41 JF [id number] 06/15/24 11:44 06/03/24 06/08/24 06/15/24 10:47 10:57 11:41 Wound Center Nurse 2 #3- R HEEL FISSURE -Correct Patient No No -Correct Side, Site, Position No No -Correct Procedure No No -Procedure Performed No No -Wound/Ulcer Outcome Not Healed #2- FISSURE @ PLANTAR BASE OF R GR TOE -Time 10:50 11:42 -Correct Patient Yes No No -Correct Side, Site, Position Yes No No -Correct Procedure Yes No No -Procedure Performed Yes No No -Type of Procedure Debridement -Clinical Debridement Subcutaneous -Tissue Removed Subcutaneous -Tunneling No No -Undermining/Tunneling No No -Circular Undermining No No -Wound/Ulcer Outcome Not Healed Not Healed Not Healed -Ulcer Cleansing Rinsed/ Rinsed/ Irrigated with Irrigated with Saline Saline -Foul Odor after Cleansing No No -Bioengineered Tissue No No -Bleeding Controlled with Pressure Pressure -Treatment Response Procedure Procedure Tolerated Well Tolerated Well -Offloading No -Debridement - Subq, 1st 20sq cm No Yes #1- L BUNION CALLUS -Time 10:51 11:00 11:43 -Correct Patient Yes Yes Yes -Correct Side, Site, Position Yes Yes Yes -Correct Procedure Yes Yes Yes -Procedure Performed Yes Yes Yes -Type of Procedure Debridement Debridement Debridement -Clinical Debridement Subcutaneous Subcutaneous Subcutaneous -Tissue Removed Subcutaneous Subcutaneous Subcutaneous -Post Debridement (cm) - Length 0.6 2.3 0.1 -Post Debridement (cm) - Width 2.5 0.3 0.1 -Post Debridement (cm) - Depth 0.1 0.3 0.1 -Total Square (Post) (cm) 1.50 0.69 0.01 -Area of Debridement (cm) - Length 0.6 2.3 0.1 -Area of Debridement (cm) - Width 2.5 0.3 0.1 -Total Square (Area) (cm) 1.50 0.69 0.01 -Tunneling No No No -Undermining/Tunneling No No No -Circular Undermining No No No -Wound/Ulcer Outcome Not Healed Not Healed Not Healed -Ulcer Cleansing Rinsed/ Rinsed/ Rinsed/ Irrigated with Irrigated with Irrigated with Saline Saline Saline -Foul Odor after Cleansing No No No -Bioengineered Tissue No No No -Bleeding Controlled with Pressure Pressure Pressure -Treatment Response Procedure Procedure Procedure Tolerated Well Tolerated Well Tolerated Well -Offloading Yes No -Type of Offloading Total Contact Cast (TCC) - Left ($) -Debridement - Subq, 1st 20sq cm Yes Yes Yes Pain Scale: 0-10 Numeric Is Patient Pain Free? Yes Yes Yes WC - Nurse 3 - General Ulcer D/C NN Start: 06/03/24 10:00 Freq: Status: Active Protocol: Activity Type Activity Date Activity User E-sign Co-sign Detail Recorded Client Recorded Date Recorded By Document 06/03/24 11:18 BMF [id number] 06/03/24 11:20 BMF Document 06/08/24 11:20 RB [id number] 06/08/24 11:22 RB Document 06/15/24 11:58 KW [id number] 06/15/24 11:58 06/03/24 06/08/24 06/15/24 11:18 11:20 11:58 Wound Care Center Nurse 3 #3- R HEEL FISSURE -Ulcer Cleansing Rinsed/ Irrigated with Saline -Foul Odor after Cleansing No -Primary Dressing Applied NonAdherent Contact Layer -Other Dressing drsg per kw group practice pediatrician lotion -Primary Dressing Covered/Secured with Dry Gauze & Roll Gauze, Secured with Tape #2- FISSURE @ PLANTAR BASE OF R GR TOE -Ulcer Cleansing Rinsed/ Irrigated with Saline -Foul Odor after Cleansing No -Primary Dressing Applied NonAdherent Contact Layer -Other Dressing per kw group practice pediatrician hydrogel -Primary Dressing Covered/Secured with Dry Gauze & Dry Gauze,Dry Roll Gauze, Gauze & Roll Secured with Gauze,Secured Tape with Tape #1- L BUNION CALLUS -Ulcer Cleansing Rinsed/ Irrigated with Saline -Foul Odor after Cleansing No -Primary Dressing Applied C Hydrogel ($), NonAdherent Contact Layer -Other Dressing per kw group practice pediatrician lotion [id number] -Primary Dressing Covered/Secured with Dry Gauze & Dry Gauze, Roll Gauze, Secured with Secured with Tape Tape -Wound Comment(s) large surgical shoe Treatment Response Procedure Procedure Tolerated Well Tolerated Well Pain Scale: 0-10 Numeric Is Patient Pain Free? Yes Yes Yes - Visit Discharge Discharge Condition Stable Stable Ambulatory Status Ambulatory Ambulatory Transportation Private Auto Private Auto Medication Reconcilliation completed & No provided to patient/care provider Clinical Summary of Care Provided Yes Assessment/Plan Assessment/Plan (1) Type 2 diabetes mellitus with diabetic polyneuropathy: CODE(S): E11.42 - Type 2 diabetes mellitus with diabetic polyneuropathy QUALIFIERS: Diabetes mellitus long term care phlebotomist insulin use: with assisted use Qualified Code(s): E11.42 - Type 2 diabetes mellitus with diabetic polyneuropathy; Z79.4 - alf (current) use of insulin PLAN: Exam performed. Arterial, venous studies ordered - awaiting results Patient has diabetic foot ulceration secondary to pressure. Left foot ulceration was excisionally debrided down to including level of subcutaneous tissue of all nonviable tissue using a combination of tissue nippers and a #15 blade. Patient tolerated procedure well. No anesthesia due to neuropathy. Hemostasis obtained with light compression. Pre and postdebridement measurements documented nursing notes. Plan for daily hydrogel DSD dressings. Offload with surgical shoe, will plan for total contact casting upon obtaining arterial and venous studies - paitent non-compliant with surgical shoe Discussed tighter blood glucose regulation we will plan for diabetes education consult Ordered baseline lab work Educated patient on signs symptoms of infection. Patient will contact our office or present to ER if they were to develop. Follow-up in 1 week. 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
--- NOTE | 2024-06-17 08:49 | ART_ITS ---
Reason For Study: Foot ulcer Procedure A bilateral lower extremity continuous wave Doppler with analog waveform analysis,segmental pressures,and ankle brachial indexes without exercise. Left Segmental Pressures Left brachial= 111mmHg. Left posterior tibial artery = 139mmHg. Left dorsalis pedis artery = 122mmHg. Left digit = 120 mmHg. The left dorsalis pedis waveforms are triphasic. The left posterior tibial artery waveforms are triphasic. Right Segmental Pressures Right brachial= 104mmHg. Right posterior tibial artery = 136mmHg. Right dorsalis pedis artery = 125mmHg. Right digit = 78 mmHg. The right dorsalis pedis waveforms are triphasic. The right posterior tibial artery waveforms are triphasic. Indices The right ankle brachial index by the dorsalis pedis is 1.13. The right ankle brachial index by the posterior tibial artery is 1.23. The right digital-brachial index is 0.68. The left ankle brachial index by the dorsalis pedis is 1.10. The left ankle brachial index by the posterior tibial artery is 1.25. The left digital-brachial index is 1.08. VL/Lower Ext Art Exam w/o Exercis Interpretation Summary Right MARYANN 1.23, normal. Doppler/PVR waveforms of the right leg normal at rest. TBI diminshed, pedal/digit disease vs spasm Left MARYANN 1.25, normal. TBI and Doppler/PVR waveforms of the left leg normal at rest. Ordering Physician: Eligio Suarez Referring Physician: Zack Painting Performed By: Martha Daugherty RVT
--- NOTE | 2024-06-17 08:49 | VDLE_ITS ---
Reason For Study: Edema RIGHT LEFT CFV is compressible, spontaneous, phasic, CFV is compressible, spontaneous, phasic, competent and demonstrates normal competent, and demonstrates normal augmentation. augmentation. FV is compressible, spontaneous, phasic, FV is compressible, spontaneous, phasic, competent and demonstrates normal competent and demonstrates normal augmentation. augmentation. POP V is compressible, spontaneous, phasic, POP V is compressible, spontaneous, phasic, competent and demonstrates normal competent and demonstrates normal augmentation. augmentation. T/P Trunk is compressible. T/P Trunk is compressible. PTV is compressible. PTV is compressible. RT PerV is compressible. LT PerV is compressible. SFJ is competent and measures 0.82 cm. SFJ is competent and measures 0.81 cm. GSV proximal thigh measures 0.36 x 0.36 cm. GSV proximal thigh measures 0.50 x 0.57 cm. GSV at knee measures 0.38 x 0.40 cm. GSV above knee is competent. GSV is competent throughout. GSV at knee measures 0.45 x 0.48 cm. SSV mid calf is competent and measures 0.22 x GSV below knee is INCOMPETENT for greater 0.24 cm. than 0.5 seconds. Procedure ASV proximal calf is INCOMPETENT for greater This is a venous duplex using B-mode, color than 0.5 seconds and measures 0.20 x 0.24 cm. flow and spectral Doppler. SSV mid calf is competent and measures 0.27 x Exam performed in department. 0.29 cm. Patient was scanned in reverse Trendelenburg position during reflux assessment. VL/Venous Duplex US - Jose Extrem Interpretation Summary Deep veins of the lower extremities are bilaterally patent and compressible seg mentally. There is no evidence of deep vein thrombosis on either side. Valvular competence appears in tact within the proximal deep venous systems bilaterally. The great saphenous veins appear bila terally patent and compressible segmentally. Sapheno-femoral junctions are bilaterally competent . The right great saphenous vein appears segmentally competent. The left great saphenous vein virgil ears competent above the knee. The left great saphenous vein appears incompetent below the knee. Sma ll saphenous veins are patent and competent bilaterally. The accessory saphenous vein in the left proximal calf is incompetent. Ordering Physician: Eligio Suarez Referring Physician: Zack Painting Performed By: Martha Daugherty RVT
[2024-06-17 10:22] LABS: Hematocrit 45.6 % (40-54); Hemoglobin 14.8 g/dL (13.0-16.5); Mean Corp Hgb Conc 32.5 g/dL (32-36); Mean Corpuscular Hgb 29.8 pg (27.0-32.0); Mean Corpuscular Volume 91.9 fL (80-94); Mean Platelet Vol. 10.1 fl (6.2-12.0); Platelet Count 245 K/mm3 (150-450); RBC Distribution Width CV 12.9 % (11.6-14.6); RBC Distribution Width SD 43.4 fl (35.1-43.9); Red Blood Count 4.96 M/mm3 (4.6-6.2); White Blood Count 8.9 K/mm3 (4.4-11.0)
[2024-06-17 10:49] LABS: ALB/GLOB Ratio 0.8 RATIO (0.9-2.4); AST(SGOT) 26 U/L (15-37); Alanine Aminotransfer ALT/SGPT 33 U/L (16-61); Albumin, Serum 3.3 g/dL (3.2-5.0); Alkaline Phosphatase 72 U/L (45-117); Anion Gap 7 (5-15); BUN 18 mg/dL (7-18); BUN/Creat Ratio 18.6 RATIO (10-20); Calcium,Total 9.2 mg/dL (8.5-10.1); Chloride 103 mmol/L (98-107); Creatinine, Serum 0.97 mg/dL (0.70-1.30); EST Glomerular Filtration Rate 84 mL/min (>60); Est Glom Filt Rate - Afr Amer 101 mL/min (>60); Estimated Creatinine Clearance 115.26 ml/min; Globulin 4.4 g/dL (2.2-4.2); Glucose 209 mg/dL (74-106); Potassium 4.1 mmol/L (3.5-5.1); Protein, Total 7.7 g/dL (6.4-8.2); Sodium Level 135 mmol/L (136-145)
[2024-06-17 11:43] LABS: Hemoglobin A1c 10.7 % (3.8-5.6)
[2024-06-18 08:13] LABS: Prealbumin 25 mg/dL (10-36)
[2024-06-22 11:25] VITALS: BP 115/73; PULSE 94; RESP 18; TEMP 35.5; BMI 41.3
--- NOTE | 2024-06-22 11:51 | PN.PCM_ITS ---
History of Present Illness Date of Service: 06/22/24 Chief Complaint: Foot ulcer History of Wound: Mr. Carlos is a 59-year-old who was referred to the wound center by his PCP due to foot ulcers. Bilateral foot concerns. Left foot said to have been present for a few months. He states that he has been cleaning it daily but not done much else to it. History of poorly controlled diabetes, does not follow with podiatry. Last A1c in August per patient was over 13. Recently had another visit with his PCP and there have been some changes to his diabetes management. Does not have much feeling in his foot either. He states that he feels well otherwise. No chills, fever or change in bowel habit. Progress of Wound: Patient is a type II diabetic with a recent hemoglobin A1c of 13. Patient does not check his blood sugar daily. Patient has no feeling in his feet. Patient has had a wound to left foot for approximately 1 month. Denies any constitutional symptoms. Denies any other treatments. Objective Data Objective Data Vital Signs: Vital Signs Temp Pulse Resp BP O2 Del Method 96 F L 94 18 115/73 Room Air 06/22/24 11:25 06/22/24 11:25 06/22/24 11:25 06/22/24 11:25 06/15/24 11:21 Oxygen Delivery Method Room Air Weight: 138.346 kg Body Mass Index (BMI) 41.3 Lab / Micro Data 06/17/24 10:00 06/17/24 10:00 Physical Exam Narrative Vascular: Dorsalis pedis posterior tibial pulses palpable 2 out of 4 to bilateral lower extremity. Atrophic skin changes noted bilaterally. Neurologic: Light touch protective sensation absent to bilateral feet. Dermatologic: Diffuse callusing to plantar first MPJ left foot with fissuring. Pre and postdebridement measurements documented nursing notes. Postdebridement wound was noticed to be full-thickness down to level of subcutaneous tissue. No deep probing undermining or signs of infection note beckman noted. Musculoskeletal: No gross deformity contributing to wound formation. Muscular strength full. Debridement Note Debridement Note Post-Debridement Measurements and Additional Note: Post-Debridement Measurements/Treatment CAM - Nurse 1 - General Ulcer Assessment Start: 06/03/24 10:00 Freq: Status: Active Protocol: [place] Activity Type Activity Date Activity User E-sign Co-sign Detail Recorded Client Recorded Date Recorded By Document 06/03/24 10:00 BMF [id number] 06/03/24 10:25 BMF Document 06/08/24 10:37 KW [id number] 06/08/24 10:43 KW Document 06/15/24 11:21 DS [id number] 06/15/24 11:23 DS Document 06/22/24 11:25 RB [id number] 06/22/24 11:31 RB 06/03/24 06/08/24 06/15/24 10:00 10:37 11:21 WC - Today's Visit Information Type of service Initial Visit Follow-up Visit Follow-up Visit (Physician/ELECTRONICS PARTS SALES REPRESENTATIVE (Physician/ELECTRONICS PARTS SALES REPRESENTATIVE ) ) Arrival Mode Ambulatory Ambulatory Ambulatory Transfer Assistance None Accompanied by friend Patient Identification Verified (Name & Yes Yes Yes ) Patient Requires Transmission-Based No No Precautions Safety Precautions Fall Prevention Height and Weight Height 6 ft Weight 138.346 kg Weight in Pounds 305.0 lbs Weight Measurement Method Stated by Patient Body Mass Index (BMI) 41.3 41.3 41.3 BMI Classification Obese Obese Obese BSA - Ting 2.55 Vital Signs Temperature (97.8 F-99.1 F) 97.4 F L 96.4 F L 96.8 F L Temperature Source Temporal Temporal Temporal Pulse Rate (60-100) 83 89 87 Pulse Location Monitor Monitor Monitor Respiratory Rate (12-18) 16 18 18 Respiratory rate source Observation Observation Observation Oxygen Delivery Method Room Air Room Air Room Air Blood Pressure (90/60-120/80) 125/68 H 149/83 H 133/76 H Blood Pressure Mean (mm Hg) 87 105 95 Source Monitor Monitor Monitor Position Sitting Semi-Fowlers Sitting Blood Pressure Location Left Arm Left Arm Right Arm History Since Last Visit- (Skip if this is Patient's initial visit) Have you changed medications since your No No last visit? Any new allergies or adverse reactions No No Had a fall/change in ADL's that may No No increase risk of falls Signs or symptoms of abuse and/or No No neglect since last visit Have you been in the hospital since your No No last visit? Has dressing in place as prescribed Yes Yes Has compression in place as prescribed N/A N/A Has offloadiing in place as prescribed N/A N/A Experienced any changes in pain level or No No management Left Footwear Regular Shoe Regular Shoe Regular Shoe Right Footwear Regular Shoe Regular Shoe Regular Shoe Pain Scale: 0-10 Numeric Is Patient Pain Free? Yes Yes Yes Lower Extremity Assessment/ Foot Assessment/ Toe Nail Assessment Right -Posterior Tibial Doppler Multiphasic -Dorsalis Pedis Doppler Multiphasic -Hair Growth on Legs No -Temperature of Extremity Warm -Thick Yes -Discolored Yes -Deformed No -Improper Length & Hygeine Yes Left -Posterior Tibial Doppler Monophasic -Dorsalis Pedis Doppler Monophasic -Extremity Color Hyperpigmented -Hair Growth on Legs No -Hair Growth on Toes No -Temperature of Extremity Warm -Other Deformity No -Prior Foot Ulcer No -Charcot Joint No -Prior Amputation No -Thick Yes -Discolored Yes -Improper Length & Hygeine Yes Neuropathy Assessment Feet - Top Side and Bottom <Entered> (a) Communication Assessment Preferred language [employer] [place] Hospitalist Medical Director Required No Able to Read Yes Able to Write Yes Communication Tools None Right Hearing Abillity Normal Left Hearing Abillity Normal Visual Assistive Devices None Teaching Assessment Preferences Verbal,Written, Audio/Visual, Demonstration Barriers to Learning None Readiness To Learn Excellent Willingness to Engage in Self Management High Activies Readiness to Engage in Self Management High Activities Anxiety Level Calm Cooperation Cooperative Perception Coherent Interest in Health Problem Asks Questions Education Importance Acknowledges Need Does Patient Smoke tobacco or other No substances Smoking Status Former smoker Is Patient Diabetic Yes Functional Assessment Recent Decline in Ability to Perform Denies Any Declines Culture/Advent/Senior Director Of Strategy Cultural/Advent Needs that may affect No Treatment Plan Teaching: Wound Center *Welcome to the Wound Center -Person Taught Patient -Teaching Method Discussion -Response to teaching Verbalize Understanding 06/22/24 11:25 WC - Today's Visit Information Type of service Follow-up Visit (Physician/ELECTRONICS PARTS SALES REPRESENTATIVE ) Arrival Mode Ambulatory Transfer Assistance None Accompanied by Patient Identification Verified (Name & Yes ) Patient Requires Transmission-Based No Precautions Safety Precautions Height and Weight Height Weight Weight in Pounds Weight Measurement Method Body Mass Index (BMI) 41.3 BMI Classification Obese BSA - Ting Vital Signs Temperature (97.8 F-99.1 F) 96 F L Temperature Source Temporal Pulse Rate (60-100) 94 Pulse Location Monitor Respiratory Rate (12-18) 18 Respiratory rate source Observation Oxygen Delivery Method Blood Pressure (90/60-120/80) 115/73 Blood Pressure Mean (mm Hg) 87 Source Monitor Position Semi-Fowlers Blood Pressure Location Left Arm History Since Last Visit- (Skip if this is Patient's initial visit) Have you changed medications since your No last visit? Any new allergies or adverse reactions No Had a fall/change in ADL's that may No increase risk of falls Signs or symptoms of abuse and/or No neglect since last visit Have you been in the hospital since your No last visit? Has dressing in place as prescribed Yes Has compression in place as prescribed No Has offloadiing in place as prescribed No Experienced any changes in pain level or No management Left Footwear Right Footwear Pain Scale: 0-10 Numeric Is Patient Pain Free? Yes Lower Extremity Assessment/ Foot Assessment/ Toe Nail Assessment Right -Posterior Tibial Doppler -Dorsalis Pedis Doppler -Hair Growth on Legs -Temperature of Extremity -Thick -Discolored -Deformed -Improper Length & Hygeine Left -Posterior Tibial Doppler -Dorsalis Pedis Doppler -Extremity Color -Hair Growth on Legs -Hair Growth on Toes -Temperature of Extremity -Other Deformity -Prior Foot Ulcer -Charcot Joint -Prior Amputation -Thick -Discolored -Improper Length & Hygeine Neuropathy Assessment Feet - Top Side and Bottom Communication Assessment Preferred bearing ring assembler Required Able to Read Able to Write Communication Tools Right Hearing Abillity Left Hearing Abillity Visual Assistive Devices Teaching Assessment Preferences Barriers to Learning Readiness To Learn Willingness to Engage in Self Management Activies Readiness to Engage in Self Management Activities Anxiety Level Cooperation Perception Interest in Health Problem Education Importance Does Patient Smoke tobacco or other substances Smoking Status Is Patient Diabetic Functional Assessment Recent Decline in Ability to Perform Culture/Advent/Senior Director Of Strategy Cultural/Advent Needs that may affect Treatment Plan Teaching: Wound Center *Welcome to the Wound Center -Person Taught -Teaching Method -Response to teaching (a) 1 - - 2 - - 3 - + 4 - + 5 - - 6 - + 7 - + 8 - + 9 - + 10 - + WC - Nurse 1 - General Ulcer Measurement Start: 06/03/24 10:00 Freq: Status: Active Protocol: Activity Type Activity Date Activity User E-sign Co-sign Detail Recorded Client Recorded Date Recorded By Document 06/03/24 10:00 BMF [id number] 06/03/24 10:25 BMF Document 06/08/24 10:37 KW [id number] 06/08/24 10:43 KW Document 06/15/24 11:23 DS [id number] 06/15/24 11:33 DS Document 06/22/24 11:25 RB [id number] 06/22/24 11:31 RB 06/03/24 06/08/24 06/15/24 10:00 10:37 11:23 Wound Center Nurse 1 #3- R HEEL FISSURE -Combined with other wound No -Current Size (cm) - Length 0.1 0.1 0.1 -Current Size (cm) - Width 0.1 0.1 0.1 -Current Size (cm) - Depth 0.1 0.1 0.1 -Total Square Cm 0.01 0.01 0.01 -Date of Last Picture (Recall this 06/03/24 field) -Photo Taken Yes No -Tunneling No No -Undermining/Tunneling No No -Circular Undermining No No -Exudate Amt Medium None Present -Exudate Type Serosanguineous -Wound Margin Distinct, Distinct, Outline Outline Attached Attached -Texture (Marlin-wound Skin Appearance) Assessed,Callus Assessed,Callus Assessed,Callus ,Scarring -Moisture (Marlin-wound Skin Appearance) Assessed,Dry/ Assessed Assessed Scaly -Color (Marlin-wound Skin Appearance) Assessed Assessed Assessed -Temperature (Marlin-wound Skin No Abnormality No Abnormality No Abnormality Appearance) (Pt Warm) (Pt Warm) (Pt Warm) -Tenderness on Palpation (Marlin-wound No No No Skin Appearance) -Ulcer Cleansing Soap and Water Soap and Water -Foul Odor after Cleansing No -Anesthetic Used 5% Lidocaine 5% Lidocaine Gel Gel #2- FISSURE @ PLANTAR BASE OF R GR TOE -Combined with other wound No -Current Size (cm) - Length 0.1 0.1 0.1 -Current Size (cm) - Width 0.1 0.1 0.1 -Current Size (cm) - Depth 0.1 0.1 0.1 -Total Square Cm 0.01 0.01 0.01 -Date of Last Picture (Recall this 06/03/24 field) -Photo Taken Yes No -Tunneling No No -Undermining/Tunneling No No -Circular Undermining No No -Exudate Amt Medium -Exudate Type Serosanguineous -Wound Margin Distinct, Distinct, Outline Outline Attached Attached -Granulation Amt Medium (34-66%) -Granulation Quality Red -Slough/Fibrin Yes -Necrosis Amt Small (1-33%) -Necrotic Tissue Type Adherent Slough -Texture (Marlin-wound Skin Appearance) Assessed,Callus Assessed,Callus Assessed,Callus ,Scarring -Moisture (Marlin-wound Skin Appearance) Assessed,Dry/ Assessed Assessed Scaly -Color (Marlin-wound Skin Appearance) Assessed Assessed Assessed -Temperature (Marlin-wound Skin No Abnormality No Abnormality No Abnormality Appearance) (Pt Warm) (Pt Warm) (Pt Warm) -Tenderness on Palpation (Marlin-wound No No No Skin Appearance) -Ulcer Cleansing Soap and Water Soap and Water -Foul Odor after Cleansing No -Anesthetic Used 5% Lidocaine 5% Lidocaine Gel Gel #1- L BUNION CALLUS -Combined with other wound No -Current Size (cm) - Length 0.1 3 0.1 -Current Size (cm) - Width 0.1 2.5 0.1 -Current Size (cm) - Depth 0.1 0 0.1 -Total Square Cm 0.01 7.5 0.01 -Date of Last Picture (Recall this 06/03/24 field) -Photo Taken Yes No -Tunneling No -Undermining/Tunneling No -Circular Undermining No -Exudate Amt Medium None Present -Exudate Type Serosanguineous -Wound Margin Distinct, Outline Attached -Granulation Amt -Granulation Quality -Slough/Fibrin -Necrosis Amt -Necrotic Tissue Type -Structure Exposed -Texture (Marlin-wound Skin Appearance) Assessed,Callus Assessed,Callus Assessed,Callus -Moisture (Marlin-wound Skin Appearance) Assessed,Dry/ Assessed Assessed Scaly -Color (Marlin-wound Skin Appearance) Assessed Assessed Assessed -Temperature (Marlin-wound Skin No Abnormality No Abnormality Appearance) (Pt Warm) (Pt Warm) -Tenderness on Palpation (Marlin-wound No Skin Appearance) -Ulcer Cleansing Soap and Water Soap and Water -Foul Odor after Cleansing No No -Anesthetic Used 5% Lidocaine 5% Lidocaine 5% Lidocaine Gel Gel Gel Right Calf (cm) 42.3 Right Ankle (cm) 25.6 Left Calf (cm) 39.8 Left Ankle (cm) 06/22/24 11:25 Wound Center Nurse 1 #3- R HEEL FISSURE -Combined with other wound No -Current Size (cm) - Length -Current Size (cm) - Width -Current Size (cm) - Depth -Total Square Cm -Date of Last Picture (Recall this field) -Photo Taken -Tunneling -Undermining/Tunneling -Circular Undermining -Exudate Amt -Exudate Type -Wound Margin -Texture (Marlin-wound Skin Appearance) -Moisture (Marlin-wound Skin Appearance) -Color (Marlin-wound Skin Appearance) -Temperature (Marlin-wound Skin Appearance) -Tenderness on Palpation (Marlin-wound Skin Appearance) -Ulcer Cleansing -Foul Odor after Cleansing -Anesthetic Used #2- FISSURE @ PLANTAR BASE OF R GR TOE -Combined with other wound -Current Size (cm) - Length -Current Size (cm) - Width -Current Size (cm) - Depth -Total Square Cm -Date of Last Picture (Recall this field) -Photo Taken -Tunneling -Undermining/Tunneling -Circular Undermining -Exudate Amt -Exudate Type -Wound Margin -Granulation Amt -Granulation Quality -Slough/Fibrin -Necrosis Amt -Necrotic Tissue Type -Texture (Marlin-wound Skin Appearance) -Moisture (Marlin-wound Skin Appearance) -Color (Marlin-wound Skin Appearance) -Temperature (Marlin-wound Skin Appearance) -Tenderness on Palpation (Marlin-wound Skin Appearance) -Ulcer Cleansing -Foul Odor after Cleansing -Anesthetic Used #1- L BUNION CALLUS -Combined with other wound No -Current Size (cm) - Length 0.1 -Current Size (cm) - Width 0.1 -Current Size (cm) - Depth 0.1 -Total Square Cm 0.01 -Date of Last Picture (Recall this field) -Photo Taken -Tunneling No -Undermining/Tunneling No -Circular Undermining No -Exudate Amt Medium -Exudate Type Serosanguineous -Wound Margin Distinct, Outline Attached -Granulation Amt Medium (34-66%) -Granulation Quality [place] -Slough/Fibrin Yes -Necrosis Amt Medium (34-66%) -Necrotic Tissue Type Adherent Slough -Structure Exposed N/A -Texture (Marlin-wound Skin Appearance) Assessed,Callus -Moisture (Marlin-wound Skin Appearance) Assessed -Color (Marlin-wound Skin Appearance) Assessed -Temperature (Marlin-wound Skin No Abnormality Appearance) (Pt Warm) -Tenderness on Palpation (Marlin-wound No Skin Appearance) -Ulcer Cleansing Wound Cleanser -Foul Odor after Cleansing No -Anesthetic Used 5% Lidocaine Gel Right Calf (cm) Right Ankle (cm) Left Calf (cm) Left Ankle (cm) WC - Nurse 2 - General Ulcer CM Notes Start: 06/03/24 10:00 Freq: Status: Active Protocol: Activity Type Activity Date Activity User E-sign Co-sign Detail Recorded Client Recorded Date Recorded By Document 06/03/24 10:47 GM [id number] 06/03/24 11:07 GM Document 06/08/24 10:57 JF [id number] 06/08/24 11:01 JF Document 06/15/24 11:41 JF [id number] 06/15/24 11:44 JF Edit Result 06/15/24 11:41 JF (1) [id number] 06/22/24 09:12 JF Document 06/22/24 11:48 JF [id number] 06/22/24 11:50 JF (1) #2- FISSURE @ PLANTAR BASE OF R GR TOE - Debridement - Subq, 1st 20sq cm Yes => No 06/03/24 06/08/24 06/15/24 10:47 10:57 11:41 Wound Center Nurse 2 #3- R HEEL FISSURE -Correct Patient No No -Correct Side, Site, Position No No -Correct Procedure No No -Procedure Performed No No -Wound/Ulcer Outcome Not Healed #2- FISSURE @ PLANTAR BASE OF R GR TOE -Time 10:50 11:42 -Correct Patient Yes No No -Correct Side, Site, Position Yes No No -Correct Procedure Yes No No -Procedure Performed Yes No No -Type of Procedure Debridement -Clinical Debridement Subcutaneous -Tissue Removed Subcutaneous -Tunneling No No -Undermining/Tunneling No No -Circular Undermining No No -Wound/Ulcer Outcome Not Healed Not Healed Not Healed -Ulcer Cleansing Rinsed/ Rinsed/ Irrigated with Irrigated with Saline Saline -Foul Odor after Cleansing No No -Bioengineered Tissue No No -Bleeding Controlled with Pressure Pressure -Treatment Response Procedure Procedure Tolerated Well Tolerated Well -Offloading No -Debridement - Subq, 1st 20sq cm No No #1- L BUNION CALLUS -Time 10:51 11:00 11:43 -Correct Patient Yes Yes Yes -Correct Side, Site, Position Yes Yes Yes -Correct Procedure Yes Yes Yes -Procedure Performed Yes Yes Yes -Type of Procedure Debridement Debridement Debridement -Clinical Debridement Subcutaneous Subcutaneous Subcutaneous -Tissue Removed Subcutaneous Subcutaneous Subcutaneous -Post Debridement (cm) - Length 0.6 2.3 0.1 -Post Debridement (cm) - Width 2.5 0.3 0.1 -Post Debridement (cm) - Depth 0.1 0.3 0.1 -Total Square (Post) (cm) 1.50 0.69 0.01 -Area of Debridement (cm) - Length 0.6 2.3 0.1 -Area of Debridement (cm) - Width 2.5 0.3 0.1 -Total Square (Area) (cm) 1.50 0.69 0.01 -Tunneling No No No -Undermining/Tunneling No No No -Circular Undermining No No No -Wound/Ulcer Outcome Not Healed Not Healed Not Healed -Ulcer Cleansing Rinsed/ Rinsed/ Rinsed/ Irrigated with Irrigated with Irrigated with Saline Saline Saline -Foul Odor after Cleansing No No No -Bioengineered Tissue No No No -Bleeding Controlled with Pressure Pressure Pressure -Treatment Response Procedure Procedure Procedure Tolerated Well Tolerated Well Tolerated Well -Offloading Yes No -Type of Offloading Total Contact Cast (TCC) - Left ($) -Debridement - Subq, 1st 20sq cm Yes Yes Yes Pain Scale: 0-10 Numeric Is Patient Pain Free? Yes Yes Yes 06/22/24 11:48 Wound Center Nurse 2 #3- R HEEL FISSURE -Correct Patient -Correct Side, Site, Position -Correct Procedure -Procedure Performed -Wound/Ulcer Outcome #2- FISSURE @ PLANTAR BASE OF R GR TOE -Time -Correct Patient -Correct Side, Site, Position -Correct Procedure -Procedure Performed -Type of Procedure -Clinical Debridement -Tissue Removed -Tunneling -Undermining/Tunneling -Circular Undermining -Wound/Ulcer Outcome -Ulcer Cleansing -Foul Odor after Cleansing -Bioengineered Tissue -Bleeding Controlled with -Treatment Response -Offloading -Debridement - Subq, 1st 20sq cm #1- L BUNION CALLUS -Time -Correct Patient No -Correct Side, Site, Position No -Correct Procedure No -Procedure Performed No -Type of Procedure -Clinical Debridement -Tissue Removed -Post Debridement (cm) - Length 0 -Post Debridement (cm) - Width 0 -Post Debridement (cm) - Depth 0 -Total Square (Post) (cm) 0 -Area of Debridement (cm) - Length 0 -Area of Debridement (cm) - Width 0 -Total Square (Area) (cm) 0 -Tunneling -Undermining/Tunneling -Circular Undermining -Wound/Ulcer Outcome Healed- Epithelialized -Ulcer Cleansing -Foul Odor after Cleansing -Bioengineered Tissue -Bleeding Controlled with -Treatment Response -Offloading -Type of Offloading -Debridement - Subq, 1st 20sq cm Pain Scale: 0-10 Numeric Is Patient Pain Free? Yes - Nurse 3 - General Ulcer D/C NN Start: 06/03/24 10:00 Freq: Status: Active Protocol: Activity Type Activity Date Activity User E-sign Co-sign Detail Recorded Client Recorded Date Recorded By Document 06/03/24 11:18 BMF [id number] 06/03/24 11:20 BMF Document 06/08/24 11:20 RB [id number] 06/08/24 11:22 RB Document 06/15/24 11:58 KW [id number] 06/15/24 11:58 KW 06/03/24 06/08/24 06/15/24 11:18 11:20 11:58 Wound Care Center Nurse 3 #3- R HEEL FISSURE -Ulcer Cleansing Rinsed/ Irrigated with Saline -Foul Odor after Cleansing No -Primary Dressing Applied NonAdherent Contact Layer -Other Dressing drsg per kw electric train driver lotion -Primary Dressing Covered/Secured with Dry Gauze & Roll Gauze, Secured with Tape #2- FISSURE @ PLANTAR BASE OF R GR TOE -Ulcer Cleansing Rinsed/ Irrigated with Saline -Foul Odor after Cleansing No -Primary Dressing Applied NonAdherent Contact Layer -Other Dressing per kw electric train driver hydrogel -Primary Dressing Covered/Secured with Dry Gauze & Dry Gauze,Dry Roll Gauze, Gauze & Roll Secured with Gauze,Secured Tape with Tape #1- L BUNION CALLUS -Ulcer Cleansing Rinsed/ Irrigated with Saline -Foul Odor after Cleansing No -Primary Dressing Applied C Hydrogel ($), NonAdherent Contact Layer -Other Dressing per kw electric train driver lotion HYDROGEL -Primary Dressing Covered/Secured with Dry Gauze & Dry Gauze, Roll Gauze, Secured with Secured with Tape Tape -Wound Comment(s) large surgical shoe Treatment Response Procedure Procedure Tolerated Well Tolerated Well Pain Scale: 0-10 Numeric Is Patient Pain Free? Yes Yes Yes - Visit Discharge Discharge Condition Stable Stable Ambulatory Status Ambulatory Ambulatory Transportation Private Auto Private Auto Medication Reconcilliation completed & No provided to patient/care provider Clinical Summary of Care Provided Yes Assessment/Plan Assessment/Plan (1) Type 2 diabetes mellitus with diabetic polyneuropathy: CODE(S): E11.42 - Type 2 diabetes mellitus with diabetic polyneuropathy QUALIFIERS: Diabetes mellitus snf insulin use: with marine oil terminal superintendent use Qualified Code(s): E11.42 - Type 2 diabetes mellitus with diabetic polyneuropathy; Z79.4 - [facility] (current) use of insulin PLAN: Exam performed. Reviewed arterial studies and venous studies with patient. Patient has incompetent saphenous vein left lower extremity. Patient has diminished TBI's on right. Otherwise arterial status intact. all wounds are healed at this time, no debridement performed. I have recommended compression stockings to be obtained [id number] for venous issues. Today patient is meeting with a registered dietitian regarding his diabetes control. Patient will follow-up as needed as all wounds are healed at this time. 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
== END 2024-06-22 13:26 | disposition home or self-care (01) ==
LOC: WC 11:30
PROVIDERS: PCP Family Medicine; Referring Provider Family Medicine; Visit Provider Podiatrist
DX: E11.621 Type 2 diabetes mellitus with foot ulcer (principal); L97.522 Non-pressure chronic ulcer of other part of left foot with fat layer exposed; I48.91 Unspecified atrial fibrillation; Z79.4 Long term (current) use of insulin; E11.42 Type 2 diabetes mellitus with diabetic polyneuropathy; E11.51 Type 2 diabetes mellitus with diabetic peripheral angiopathy without gangrene; Z87.891 Personal history of nicotine dependence; Z79.01 Long term (current) use of anticoagulants; Z79.84 Long term (current) use of oral hypoglycemic drugs; Z79.85 Long-term (current) use of injectable non-insulin antidiabetic drugs; L84 Corns and callosities
CPT/HCPCS: 11042; 29445; 36415; 80053; 83036; 84134; 85027; 93923; 93970; 97802; 99204; 99213; G0463